=== PATIENT | female | born 1980 ===

== ENCOUNTER → 2022-03-27 | Outpatient (CLI) | payer BC | LOC: LAB SHORT 17:15 → LAB 17:15 | DX: O09.893 Supervision of other high risk pregnancies, third trimester (principal); Z3A.00 Weeks of gestation of pregnancy not specified | CPT/HCPCS: 87081; 87150 ==

== ENCOUNTER 2022-04-21 05:27 | Inpatient (IN) | payer BC ==
[~2022-04-21] VITALS: Ht 165.1 cm; Wt 75.0 kg
[2022-04-21 05:52] LABS: BASOPHILS ABSOLUTE AUTO 0.03 K/mm3 (0.00-0.23); BASOPHILS PERCENT AUTO 0 % (0-2); EOSINOPHILS ABSOLUTE AUTO 0.06 K/mm3 (0.00-0.68); EOSINOPHILS PERCENT AUTO 1 % (0-6); Hematocrit 38.7 % (33.0-51.0); Hemoglobin 13.6 g/dL (11.5-16.0); IMMATURE GRAN ABSOLUTE AUTO 0.11 K/mm3 (0.00-0.10); IMMATURE GRAN PERCENT AUTO 1 % (0-1); LYMPHOCYTES PERCENT AUTO 22 % (21-46); MONOCYTES ABSOLUTE AUTO 0.65 K/mm3 (0.16-1.47); MONOCYTES PERCENT AUTO 7 % (4-13); Mean Corpuscular HGB Conc 35.1 g/dL (31.5-36.5); Mean Corpuscular Volume 100 fL (80-100); Mean Platelet Volume 9.4 fL (9.1-12.4); NEUTROPHILS ABSOLUTE AUTO 6.24 K/mm3 (1.96-9.15); NEUTROPHILS PERCENT AUTO 69 % (41-73); Platelet Count 265 K/mm3 (150-400); RDW Coefficient Variation 12.3 % (11.7-14.2); RDW Standard Deviation 44.5 fL (35.1-46.3); Red Blood Cell Count 3.89 M/mm3 (3.80-5.20); White Blood Cell Count 9.09 K/mm3 (4.00-11.30)
[2022-04-21] MEDS ORDERED: PRENATAL TABLE1 EAC9 PO (08:15)
--- NOTE | 2022-04-21 18:33 | NUR ---
STABLE PT CARING FOR SELF AND NB WELL, DENIES NEED FOR PAIN MEDICATION AT THIS TIME NB BREAST FEEDING WELL T/O DAY BUT HAS HAD EPISODES OF SPITTINESS
--- NOTE | 2022-04-21 18:50 | NUR ---
REPT TO PM SHIFT
--- NOTE | 2022-04-22 10:23 | NUR ---
DISCHARGE DISCHARE HOME STABLE. CARING FOR SELF AND BABY INDEPENDANTLY. VERBALIZES UNDERSTANDING OF DC INSTRUCTIONS AND FOLLOW UP APPOINTMENTS. NO QUESTIONS OR CONCERNS. VSS.
== END 2022-04-22 11:00 | disposition home or self-care (01) | DRG 807 ==
LOC: OBS 05:27 → BC 05:28 → OBS 05:41 → BC 05:43
PROVIDERS: Advanced Practice Midwife; ADMIT Obstetrics & Gynecology
PROC: 10E0XZZ Delivery of Products of Conception, External Approach (ICD-10-PCS; principal; 2022-04-21)
PROC: 0HQ9XZZ Repair Perineum Skin, External Approach (ICD-10-PCS; 2022-04-21)
DX: O99.344 Other mental disorders complicating childbirth (principal); Z37.0 Single live birth; F41.9 Anxiety disorder, unspecified; Z67.40 Type O blood, Rh positive; O70.0 First degree perineal laceration during delivery; Z3A.39 39 weeks gestation of pregnancy; Z28.21 Immunization not carried out because of patient refusal; Z98.818 Other dental procedure status; Z88.0 Allergy status to penicillin
CPT/HCPCS: 85025; 86850; 86900; 86901; A9270; J1885; J2590; J7120